=== PATIENT | male | born 1995 | race American Indian/Alaskan Native ===

== ENCOUNTER 2017-02-26 17:42 | Emergency (ER) | payer MEDICARE ==
--- NOTE | 2017-02-26 22:09 | Emergency Department Report ---
ED General Adult HPI - General Chief complaint: Allergic Reaction Stated complaint: FACIAL SWELLING Time Seen by Provider: 02/26/17 21:21 Source: patient Mode of arrival: Ambulatory Limitations: No Limitations - History of Present Illness Initial comments: In comes into the ER today with complaints of bilateral facial pain and swelling for the past 2 days. Patient denies any injury. Patient states that initially he went to [facility] and states that they did nothing for him. Patient states that they gave him a prescription of something and he went to his doctor where apparently the nurse told him not to take the medicine because she wanted his doctor to see him this coming Wednesday and see what his symptoms were. Patient has not taken anything for his condition but has been to 2 other facilities for the same complaint. Patient came in today because he states the pain and swelling seems to keep getting worse. Patient denies any rash, obvious fevers, chills, body aches. Patient denies any throat pain or swelling. Patient does state that he believes he has had all his vaccinations growing up. Severity scale (0 -10): 0 - Related Data Previous Rx's Medication Instructions Recorded Last Taken Type Ranitidine HCl [Zantac 75 MG TAB] 75 mg PO BID #20 tablet 07/20/15 Unknown Rx Ibuprofen [Motrin] 600 mg PO Q8H PRN #15 tablet 05/25/16 Unknown Rx Naproxen [Naprosyn TAB] 500 mg PO BID #20 tablet 02/27/17 Unknown Rx traMADol [Ultram 50 MG tab] 50 mg PO Q4HR PRN #30 tablet 02/27/17 Unknown Rx Allergies Allergy/AdvReac Type Severity Reaction Status Date / Time lemon Allergy Unknown Verified 05/22/16 16:03 [place] Allergy Unknown Verified 05/22/16 16:03 Penicillins Allergy Rash Verified 07/20/15 16:52 pineapple Allergy Itching Verified 05/22/16 16:03 ED Review of Systems ROS: Stated complaint: FACIAL SWELLING Other details as noted in HPI Constitutional: denies: chills, fever Eyes: denies: eye pain, eye discharge, vision change ENT: other (bilateral jaw pain). denies: ear pain, throat pain, dental pain, hearing loss Respiratory: denies: cough, shortness of breath, SOB with exertion, wheezing Cardiovascular: denies: chest pain, palpitations Endocrine: no symptoms reported Gastrointestinal: denies: abdominal pain, nausea, vomiting Genitourinary: denies: urgency, dysuria Musculoskeletal: denies: back pain, joint swelling, arthralgia Skin: denies: rash, lesions Neurological: denies: headache, weakness, numbness, paresthesias, confusion Psychiatric: denies: anxiety, depression Hematological/Lymphatic: denies: easy bleeding, easy bruising ED Past Medical Hx - Past Medical History Hx Hypertension: Yes Hx Headaches / Migraines: Yes Hx Psychiatric Treatment: (depression, anxiety, bipolar disorder) Hx Asthma: Yes - Surgical History Additional Surgical History: ear tubes - Social History Smoking Status: Never Smoker Substance Use Type: None - Medications Home Medications: Home Medications Medication Instructions Recorded Confirmed Last Taken Type Ranitidine HCl [Zantac 75 MG TAB] 75 mg PO BID #20 tablet 07/20/15 Unknown Rx Ibuprofen [Motrin] 600 mg PO Q8H PRN #15 tablet 05/25/16 Unknown Rx Naproxen [Naprosyn TAB] 500 mg PO BID #20 tablet 02/27/17 Unknown Rx traMADol [Ultram 50 MG tab] 50 mg PO Q4HR PRN #30 tablet 02/27/17 Unknown Rx ED Physical Exam - General Limitations: No Limitations General appearance: alert, in no apparent distress - Head Head exam: Present: atraumatic, normocephalic, other (bilateral swelling and tenderness noted to the mandibular angle and posteriorly). Absent: normal inspection - Eye Eye exam: Present: normal appearance, PERRL, EOMI. Absent: conjunctival injection, periorbital swelling, periorbital tenderness Pupils: Present: normal accommodation - ENT ENT exam: Present: normal orophraynx, mucous membranes moist, normal external ear exam - Neck Neck exam: Present: normal inspection, tenderness (bilateral anterior upper neck tenderness and swelling in mandibular angle region.), full ROM. Absent: thyromegaly - Respiratory Respiratory exam: Present: normal lung sounds bilaterally. Absent: respiratory distress - Cardiovascular Cardiovascular Exam: Present: regular rate, normal rhythm, normal heart sounds. Absent: systolic murmur, diastolic murmur, rubs, gallop - GI/Abdominal GI/Abdominal exam: Present: soft, normal bowel sounds. Absent: distended, tenderness - Rectal Rectal exam: Present: deferred - Extremities Exam Extremities exam: Present: normal inspection - Back Exam Back exam: Present: normal inspection, full ROM. Absent: tenderness - Neurological Exam Neurological exam: Present: alert, oriented X3, CN II-XII intact, normal gait, reflexes normal. Absent: motor sensory deficit - Psychiatric Psychiatric exam: Present: normal affect, normal mood - Skin Skin exam: Present: warm, dry, intact, normal color. Absent: rash ED Course Vital Signs 02/26/17 02/26/17 18:32 21:35 Temperature 98.1 F 97.7 F Pulse Rate 61 55 L Respiratory 16 Rate Blood Pressure 128/75 Blood Pressure 131/78 [Left] O2 Sat by Pulse 98 100 Oximetry ED Medical Decision Making - Lab Data Result diagrams: 02/26/17 22:30 02/26/17 22:30 Lab Results 02/26/17 02/26/17 Range/Units 22:30 22:30 WBC 4.5 (4.5-11.0) K/mm3 RBC 4.55 (3.65-5.03) M/mm3 Hgb 14.2 (11.8-15.2) gm/dl Hct 42.2 (35.5-45.6) % MCV 93 (84-94) fl MCH 31 (28-32) pg MCHC 34 (32-34) % RDW 13.8 (13.2-15.2) % Plt Count 154 (140-440) K/mm3 Add Manual Diff Complete Total Counted 100 Seg Neutrophils % [employer] Seg Neuts % (Manual) 31.0 L (40.0-70.0) % Band Neutrophils % 0 % Lymphocytes % (Manual) 43.0 H (13.4-35.0) % Reactive Lymphs % (Man) 0 % Monocytes % (Manual) 17.0 H (0.0-7.3) % Eosinophils % (Manual) 6.0 H (0.0-4.3) % Basophils % (Manual) 3.0 H (0.0-1.8) % Metamyelocytes % 0 % Myelocytes % 0 % Promyelocytes % 0 % Blast Cells % 0 % Nucleated RBC % Not Reportable Seg Neutrophils # Man 1.4 L (1.8-7.7) K/mm3 Band Neutrophils # 0.0 K/mm3 Lymphocytes # (Manual) 1.9 (1.2-5.4) K/mm3 Abs React Lymphs (Man) 0.0 K/mm3 Monocytes # (Manual) 0.8 (0.0-0.8) K/mm3 Eosinophils # (Manual) 0.3 (0.0-0.4) K/mm3 Basophils # (Manual) 0.1 (0.0-0.1) K/mm3 Metamyelocytes # 0.0 K/mm3 Myelocytes # 0.0 K/mm3 Promyelocytes # 0.0 K/mm3 Blast Cells # 0.0 K/mm3 WBC Morphology Not Reportable Hypersegmented Neuts Not Reportable Hyposegmented Neuts Not Reportable Hypogranular Neuts Not Reportable Smudge Cells Not Reportable Toxic Granulation Not Reportable Toxic Vacuolation Not Reportable Dohle Bodies Not Reportable Pelger-Huet Anomaly Not Reportable Brian Rods Not Reportable Platelet Estimate Appears normal Clumped Platelets Not Reportable Plt Clumps, EDTA Not Reportable Large Platelets Not Reportable Giant Platelets Not Reportable Platelet Satelliting Not Reportable Plt Morphology Comment Not Reportable RBC Morphology Not Reportable Dimorphic RBCs Not Reportable Polychromasia Not Reportable Hypochromasia Not Reportable Poikilocytosis Not Reportable Anisocytosis Rare Microcytosis Not Reportable Macrocytosis Not Reportable Spherocytes Not Reportable Pappenheimer Bodies Not Reportable Sickle Cells Not Reportable Target Cells Not Reportable Tear Drop Cells Not Reportable Ovalocytes Not Reportable Helmet Cells Not Reportable [place] Bodies Not Reportable [place] Rings Not Reportable Mcdonald Cells Not Reportable Bite Cells Not Reportable Crenated Cell Not Reportable Elliptocytes Not Reportable Acanthocytes (Spur) Not Reportable Rouleaux Not Reportable Hemoglobin C Crystals Not Reportable Schistocytes Not Reportable Malaria parasites Not Reportable Geoff Bodies Not Reportable Hem Pathologist Commnt No Sodium 139 (137-145) mmol/L Potassium 3.7 (3.6-5.0) mmol/L Chloride 98.8 (98-107) mmol/L Carbon Dioxide 25 (22-30) mmol/L Anion Gap 19 mmol/L BUN 11 (9-20) mg/dL Creatinine 0.7 L (0.8-1.5) mg/dL Estimated GFR > 60 ml/min BUN/Creatinine Ratio 15.71 % Glucose 80 (75-100) mg/dL Calcium 9.2 (8.4-10.2) mg/dL Total Bilirubin 0.60 (0.1-1.2) mg/dL AST 16 (5-40) units/L ALT 22 (7-56) units/L Alkaline Phosphatase 133 H (35-129) units/L Total Protein 7.5 (6.3-8.2) g/dL Albumin 4.4 (3.9-5) g/dL Albumin/Globulin Ratio 1.4 % - Radiology Data Radiology results: report reviewed CT scan of the soft tissue of neck with contrast: There is slight soft tissue swelling identified along the mandibular angle region bilaterally in this patient. No formed fluid collections or abscesses seen. The parotid glands appear normal. The osseous structures are intact. - Medical Decision Making Lab results as well as CT imaging results reviewed and discussed with patient and family in room. I had Dr. Gomez examine patient in room. Patient does not have any signs of Dewey's angina as he has no airway compromise, no sublingual swelling, is tolerating secretions without difficulties. Swelling seems more externally superficial in nature. There is no surface erythematous nor internal signs of dental abscesses, no dental pain. Patient is nontoxic and hemodynamically intact. I believe patient to be having symptoms of the mumps. I have informed patient that this is a contagious viral illness and that he needs to limit any external exposure for the next 5 days. I will start patient on a short course of anti-inflammatories as well as pain medications for symptomatic relief. Patient is to keep his appointment with his doctor on Wednesday. Patient and family are in agreement with treatment plan patient is stable for discharge. Critical care attestation.: If time is entered above; I have spent that time in minutes in the direct care of this critically ill patient, excluding procedure time. ED Disposition Clinical Impression: Facial swelling Mumps Qualifiers: Mumps complication type: without complication Qualified Code(s): B26.9 - Mumps without complication Disposition: TO HOME OR SELFCARE Is pt being admited?: No Does the pt Need Aspirin: No Condition: Good Instructions: Mumps (ED) Prescriptions: Naproxen [Naprosyn TAB] 500 mg PO BID #20 tablet traMADol [Ultram 50 MG tab] 50 mg PO Q4HR PRN #30 tablet PRN Reason: Pain Referrals: PRIMARY CARE,MD [Primary Care Provider] - 3-5 Days Time of Disposition: 01:41
[2017-02-26 23:16] LABS: Hematocrit 42.2 % (35.5-45.6); Hemoglobin 14.2 gm/dl (11.8-15.2); Mean Corpuscular HGB Conc 34 % (32-34); Mean Corpuscular Hemoglobin 31 pg (28-32); Mean Corpuscular Volume 93 fl (84-94); Platelet Count 154 K/mm3 (140-440); Red Blood Count 4.55 M/mm3 (3.65-5.03); Red Cell Distribution Width 13.8 % (13.2-15.2); White Blood Count 4.5 K/mm3 (4.5-11.0)
[2017-02-26 23:35] LABS: Alanine Aminotransferase 22 units/L (7-56); Albumin 4.4 g/dL (3.9-5); Albumin/Globulin Ratio 1.4 %; Alkaline Phosphatase 133 units/L (35-129); Anion Gap 19 mmol/L; BUN/Creatinine Ratio 15.71; Blood Urea Nitrogen 11 mg/dL (9-20); Calcium 9.2 mg/dL (8.4-10.2); Carbon Dioxide 25 mmol/L (22-30); Chloride 98.8 mmol/L (98-107); Glucose 80 mg/dL (75-100); Potassium 3.7 mmol/L (3.6-5.0); Sodium 139 mmol/L (137-145); Total Protein 7.5 g/dL (6.3-8.2)
[2017-02-27] MEDS ORDERED: NACL ONE (00:01)
--- NOTE | 2017-02-27 01:16 | Cat Scan Report ---
FINAL REPORT PROCEDURE: CT NECK W CON TECHNIQUE: Computerized axial tomography of the soft tissue neck was performed following the IV injection of iodinated nonionic contrast. HISTORY: Bilateral mandibular angle swelling COMPARISON: No prior studies are available for comparison. FINDINGS: Skull and scalp: The osseous structures appear intact. There is slight soft tissue swelling along the mandibular angles bilaterally. This is nonspecific. No formed fluid collection or abscess is seen.. Paranasal sinuses: Normal. Nasopharynx: Normal . Oral cavity: Normal . Epiglottis/vallecula: Normal . Larynx/pyriform sinuses: Normal . Thyroid gland: Normal . Lymph nodes: None enlarged . Salivary glands: Normal . Upper thorax: Normal . IMPRESSION: There is slight soft tissue swelling identified along the mandibular angle region bilaterally in this patient. No formed fluid collection or abscess is seen. The swelling is nonspecific. The parotid glands appear normal. The osseous structures are intact.
[2017-02-27 01:34] LABS: Blastocytes % (Manual) 0 %
[2017-02-27 01:35] LABS: Anisocytosis RARE; Diff Status Complete
[2017-02-27 01:56] VITALS: BP 128/80
== END 2017-02-27 01:56 | disposition home or self-care (01) ==
LOC: ED 17:42
DX: B26.9 Mumps without complication (principal); R20.0 Anesthesia of skin; I10 Essential (primary) hypertension; G43.909 Migraine, unspecified, not intractable, without status migrainosus; F31.9 Bipolar disorder, unspecified; J45.909 Unspecified asthma, uncomplicated
CPT/HCPCS: 36415; 70491; 80053; 85007; 85025; 86735; 99284; Q9967

== ENCOUNTER 2017-11-13 13:41 | Emergency (ER) | payer MEDICARE ==
[2017-11-13 15:09] LABS: Basophils # (Auto) 0.1 K/mm3 (0.0-0.1); Basophils % (Auto) 1.3 % (0.0-1.8); Eosinophils # (Auto) 0.2 K/mm3 (0.0-0.4); Eosinophils % (Auto) 4.1 % (0.0-4.3); Hematocrit 41.3 % (35.5-45.6); Hemoglobin 13.5 gm/dl (11.8-15.2); Lymphocytes # (Auto) 2.3 K/mm3 (1.2-5.4); Lymphocytes % (Auto) 41.5 % (13.4-35.0); Mean Corpuscular HGB Conc 33 % (32-34); Mean Corpuscular Hemoglobin 31 pg (28-32); Mean Corpuscular Volume 93 fl (84-94); Monocytes # (Auto) 0.5 K/mm3 (0.0-0.8); Monocytes % (Auto) 8.1 % (0.0-7.3); Platelet Count 185 K/mm3 (140-440); Red Blood Count 4.43 M/mm3 (3.65-5.03); Red Cell Distribution Width 14.4 % (13.2-15.2)
[2017-11-13 15:24] LABS: Alanine Aminotransferase 129 units/L (7-56); Albumin 4.3 g/dL (3.9-5); BUN/Creatinine Ratio 10; Blood Urea Nitrogen 10 mg/dL (9-20); Calcium 9.4 mg/dL (8.4-10.2); Hemolysis Index 16
[2017-11-13] MEDS ORDERED: MOTRIN PO ONE (16:40)
[2017-11-13] MEDS ORDERED: PEPCID PO ONE (16:40)
--- NOTE | 2017-11-13 17:25 | XRay Report ---
FINAL REPORT EXAM: XR ABDOMEN 2V HISTORY: diffuse abd pain TECHNIQUE: Two views of the abdomen were performed Comparison: None FINDINGS: There large amount of stool in the right colon and transverse colon. The left colon is air-filled and distended. There is moderate stool ball in the rectum. Upright film is somewhat clipped in the region of the assessed area for free air. Questionable Rigler's sign in the flanks. Alternatively this may represent the properitoneal fat stripe in a thin patient. The inferior tip right lobe liver appears to be unusually well seen. IMPRESSION: Patient appears to be significantly constipated primarily on the right abdomen with air-filled distended left colon. There is moderate amount of stool in the rectum. There is a questionable riglers sign and unusually well seen inferior tip right lobe liver. Limited assessment for free air as the annotation is obscuring the region of the right hemidiaphragm which is also partially clipped. At a minimum, would recommend obtaining a repeat film. Alternatively, recommend CT abdomen and pelvis. This is a critical level 2 result. Findings are called on 11/13/2017 at 1719 hours.
[2017-11-13 18:02] VITALS: BP 140/89
--- NOTE | 2017-11-13 19:34 | Cat Scan Report ---
FINAL REPORT EXAM: CT ABDOMEN PELVIS W CON TECHNIQUE: CT evaluation performed of the abdomen and pelvis following IV and oral contrast administration. Coronal and sagittal imaging also provided for interpretation. PRIORS: Radiographs dated 11/13/2017. FINDINGS: Lower thorax: The lung bases are clear. The visualized portions of the heart are normal. Liver: No focal lesions identified of the liver. No intrahepatic biliary ductal dilation. Gallbladder/ biliary system: No cholelithiasis. No extrahepatic biliary ductal dilation. Spleen: No splenic lesions are seen. Pancreas: No pancreatic lesions are seen. No pancreatic duct dilation. Kidneys: No kidney lesions identified. No hydronephrosis. No ureteral or renal calcifications. Adrenal glands: No adrenal masses. Vasculature: The abdominal and pelvic vasculature demonstrates a normal noncontrasted appearance. Lymph nodes: No enlarged lymph nodes are seen in the abdomen or pelvis. Bowel, mesentery, peritoneum: No bowel obstruction. Moderate to large volume formed colonic stool. Evaluated portions of the appendix appears normal, no adjacent inflammatory change. Urinary bladder: No calculi or wall thickening. Pelvis: Normal anatomy is noted. No masses. Abdominal wall: No abdominal wall hernia or subcutaneous findings. Bones: No acute osseous abnormality. IMPRESSION: No CT evidence of acute abdominopelvic process. Moderate to large volume formed colonic stool. No evidence of GI tract inflammatory change or perforation. HISTORY: Possible regular sign on KUB
--- NOTE | 2017-11-13 20:18 | Emergency Department Report ---
ED Abdominal Pain HPI - General Chief Complaint: Abdominal Pain Stated Complaint: ABDOMINAL PAIN/CD4 COUNT Time Seen by Provider: 11/13/17 16:31 Source: patient Mode of arrival: Ambulatory Limitations: No Limitations - History of Present Illness Initial Comments: Patient is a 22-year-old [place] male who has been complaining of some abdominal discomfort for the past 2-3 days. Patient states that he feels distended in his abdomen. Patient says on the bilateral sides of his abdomen where his hernia and states the pain is 8 out of 10 and crampy in nature. Patient denies any nausea vomiting diarrhea or fever at this time. Patient states that similar was secondary to constipation. Severity scale (0 -10): 8 - Related Data Previous Rx's Medication Instructions Recorded Last Taken Type Ranitidine HCl [Zantac 75 MG TAB] 75 mg PO BID #20 tablet 07/20/15 Unknown Rx Ibuprofen [Motrin] 600 mg PO Q8H PRN #15 tablet 05/25/16 Unknown Rx Naproxen [Naprosyn TAB] 500 mg PO BID #20 tablet 02/27/17 Unknown Rx traMADol [Ultram 50 MG tab] 50 mg PO Q4HR PRN #30 tablet 02/27/17 Unknown Rx Dicyclomine [Bentyl] 40 mg PO QID #20 tablet 11/13/17 Unknown Rx Docusate Sodium [Colace] 100 mg PO BID #60 capsule 11/13/17 Unknown Rx Allergies Allergy/AdvReac Type Severity Reaction Status Date / Time lemon Allergy Unknown Verified 05/22/16 16:03 [place] Allergy Unknown Verified 05/22/16 16:03 Penicillins Allergy Rash Verified 07/20/15 16:52 pineapple Allergy Itching Verified 05/22/16 16:03 ED Review of Systems ROS: Stated complaint: ABDOMINAL PAIN/CD4 COUNT Other details as noted in HPI Comment: All other systems reviewed and negative ED Past Medical Hx - Past Medical History Hx Hypertension: Yes Hx Headaches / Migraines: Yes Hx Psychiatric Treatment: (depression, anxiety, bipolar disorder) Hx Asthma: Yes - Surgical History Additional Surgical History: ear tubes - Social History Smoking Status: Current Some Day Smoker Substance Use Type: None - Medications Home Medications: Home Medications Medication Instructions Recorded Confirmed Last Taken Type Ranitidine HCl [Zantac 75 MG TAB] 75 mg PO BID #20 tablet 07/20/15 Unknown Rx Ibuprofen [Motrin] 600 mg PO Q8H PRN #15 tablet 05/25/16 Unknown Rx Naproxen [Naprosyn TAB] 500 mg PO BID #20 tablet 02/27/17 Unknown Rx traMADol [Ultram 50 MG tab] 50 mg PO Q4HR PRN #30 tablet 02/27/17 Unknown Rx Dicyclomine [Bentyl] 40 mg PO QID #20 tablet 11/13/17 Unknown Rx Docusate Sodium [Colace] 100 mg PO BID #60 capsule 11/13/17 Unknown Rx ED Physical Exam - General Limitations: No Limitations General appearance: alert, in no apparent distress - Head Head exam: Present: atraumatic, normocephalic - Eye Eye exam: Present: normal appearance - ENT ENT exam: Present: mucous membranes moist - Neck Neck exam: Present: normal inspection - Respiratory Respiratory exam: Present: normal lung sounds bilaterally. Absent: respiratory distress, wheezes, rales, rhonchi - Cardiovascular Cardiovascular Exam: Present: regular rate, normal rhythm. Absent: systolic murmur, diastolic murmur, rubs, gallop - GI/Abdominal GI/Abdominal exam: Present: soft, tenderness (tenderness on the bilateral abdominal sides. There is no midline tenderness at the epigastrium umbilicus and suprapubic regions. There is no CVA tenderness or true flank pain.), normal bowel sounds. Absent: distended, guarding, rebound - Rectal Rectal exam: Present: deferred - Extremities Exam Extremities exam: Present: normal inspection - Back Exam Back exam: Present: normal inspection - Neurological Exam Neurological exam: Present: alert, oriented X3 - Psychiatric Psychiatric exam: Present: normal affect, normal mood - Skin Skin exam: Present: warm, dry, intact, normal color. Absent: rash ED Course Vital Signs 11/13/17 11/13/17 13:56 15:59 Temperature 98.7 F Pulse Rate 103 H 79 Respiratory 17 18 Rate Blood Pressure 140/77 Blood Pressure 140/89 [Left] O2 Sat by Pulse 97 99 Oximetry ED Medical Decision Making - Lab Data Result diagrams: 11/13/17 14:55 11/13/17 14:55 - Radiology Data Radiology results: report reviewed X-ray of the abdomen and pelvis shows large amounts of fecal retention in the right abdomen as well as the rectum and large gaseous distention of the colon on the left. There is questionable Rigler sign and CT abdomen and pelvis was suggested for follow-up. CT abdomen and pelvis with IV contrast shows constipation there is no evidence of any perforation present - Medical Decision Making Patient is a 22-year-old -[place] male who is presenting with abdominal discomfort. Abdominal pain is secondary to constipation and gaseous distention of the colon who be discharged home. Critical care attestation.: If time is entered above; I have spent that time in minutes in the direct care of this critically ill patient, excluding procedure time. ED Disposition Clinical Impression: Gas pain, Constipation Disposition: DC-01 TO HOME OR SELFCARE Is pt being admited?: No Does the pt Need Aspirin: No Condition: Stable Instructions: Constipation (ED), High Fiber Diet (ED) Prescriptions: Dicyclomine [Bentyl] 40 mg PO QID #20 tablet Docusate Sodium [Colace] 100 mg PO BID #60 capsule Referrals: AHSAN CORONA MD [Staff Physician] - as needed
== END 2017-11-13 20:30 | disposition home or self-care (01) ==
LOC: ED 13:41
DX: K59.00 Constipation, unspecified (principal); R14.1 Gas pain; I10 Essential (primary) hypertension; G43.909 Migraine, unspecified, not intractable, without status migrainosus; J45.909 Unspecified asthma, uncomplicated; F17.200 Nicotine dependence, unspecified, uncomplicated; F31.9 Bipolar disorder, unspecified; F41.9 Anxiety disorder, unspecified; Z88.0 Allergy status to penicillin; Z91.018 Allergy to other foods
CPT/HCPCS: 36415; 74019; 74177; 80053; 85025; 99284; Q9967

== ENCOUNTER 2017-11-30 15:23 | Emergency (ER) | payer MEDICARE ==
[2017-11-30 15:40] VITALS: BP 132/86
== END 2017-11-30 21:15 | disposition left against medical advice (07) ==
LOC: ED 15:23
DX: G43.909 Migraine, unspecified, not intractable, without status migrainosus (principal); R06.02 Shortness of breath; Z53.21 Procedure and treatment not carried out due to patient leaving prior to being seen by health care provider

== ENCOUNTER 2018-03-22 21:01 | Emergency (ER) | payer MEDICARE ==
[2018-03-22 21:57] LABS: Basophils # (Auto) 0.1 K/mm3 (0.0-0.1); Basophils % (Auto) 0.8 % (0.0-1.8); Eosinophils # (Auto) 0.1 K/mm3 (0.0-0.4); Eosinophils % (Auto) 1.4 % (0.0-4.3); Hematocrit 41.1 % (35.5-45.6); Hemoglobin 13.9 gm/dl (11.8-15.2); Lymphocytes # (Auto) 1.7 K/mm3 (1.2-5.4); Lymphocytes % (Auto) 25.1 % (13.4-35.0); Mean Corpuscular HGB Conc 34 % (32-34); Mean Corpuscular Hemoglobin 32 pg (28-32); Mean Corpuscular Volume 94 fl (84-94); Monocytes # (Auto) 0.6 K/mm3 (0.0-0.8); Monocytes % (Auto) 8.9 % (0.0-7.3); Platelet Count 212 K/mm3 (140-440); Red Blood Count 4.39 M/mm3 (3.65-5.03); Red Cell Distribution Width 14.5 % (13.2-15.2)
[2018-03-22 22:08] LABS: BUN/Creatinine Ratio 12; Blood Urea Nitrogen 11 mg/dL (9-20); Calcium 10.6 mg/dL (8.4-10.2); Hemolysis Index 9
[2018-03-22 22:35] LABS: Bilirubin,Urine NEG (Negative); Blood,Urine NEG (Negative); Color,Urine Yellow (Yellow); Mucus,Urine FEW /HPF; Urobilinogen,Urine < 2.0 mg/dL (<2.0)
[2018-03-22 22:41] LABS: Amphetamine Screen,Urine PRESUMPTIVE NEGATIVE; Benzodiazepines Screen,Urine PRESUMPTIVE NEGATIVE; Cannabinoid Screen,Urine PRESUMPTIVE NEGATIVE; Cocaine Screen,Urine PRESUMPTIVE NEGATIVE; Methadone Screen,Urine PRESUMPTIVE NEGATIVE; Opiate Screen,Urine PRESUMPTIVE NEGATIVE
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
[2018-03-23 10:30] VITALS: BP 109/64
--- NOTE | 2018-03-23 12:35 | Consultation ---
History of Present Illness - Reason for Consult Reason for consult: recent expression of SI with plan - History of Present Psychiatric Illness This is a 22-year-old male with a formal past psychiatric history of bipolar disorder presents secondary to recent expression of suicidal thoughts with plan. Patient reports he brought himself to the hospital secondary to recent expression or expansive suicidal thoughts. Exacerbating event is noted as patient having a conflict with his sister and patient being thrown out of her home. At the current time, patient follows up outpatient with [facility] as well as the [facility]. Patient is HIV-positive and last CD4 count was 573 per self-report. Patient reports he is apparent to his medications for HIV. Current symptoms consist of persistent suicidal thoughts with plan, low side moods, some concern and anxiety about him now being homeless. Patient denies auditory visual hallucinations. Patient does not currently report being in a manic episode. Current medications: Seroquel Cymbalta GENVOYA Past psychiatric history: Patient peers he also has a [facility] as well as [facility]. Outpatient currently [facility] Past medical history: HIV-positive, asthma and history of migraines. Allergic to lemon line penicillins and pineapple Social history: Trauma abuse history unremarkable per review of the medical record. Patient denies using illicit substances and there is no acute reason to be concerned for detox. Patient reports that he is now homeless and was recently living with his sister. Patient reports that his family wants nothing to do with him secondary to his ongoing mood lability. On mental status examinati, this is a 22-year-old tall well-developed well- nourished male with limited eye contact but wearing spectacles. Patient was recumbent in bed wearing hospital gown. Patient was guarded and withdrawn. He appeared fairly apprehensive and irritable. Speech was clear coherent but logical goal directed and with no loose associations. He continues to report auditory hallucinations as well as suicidal thoughts with plan and intent on my examination. There is no other delusions paranoia or grandiosity noted. Oriented to person place time and situation. Concentration and attention appeared intact. Memory intact. Insight judgment limited and impulsive. ADLs and dependent. Admitting diagnosis: Bipolar disorder, most recent episode depressed Plan: Initiate home dose of Seroquel and titrate till it's clinically effective Hold Cymbalta Continue on 1013 and find appropriate inpatient psychiatric placement for this patient. Continue current suicide precautions that are maintained in the ER. Reassess daily to see if patient continues to have auditory hallucinations and comorbid suicidal thoughts with plan. If the patient's auditory hallucinations and suicidal thoughts began to yoli, create a stable outpatient plan for the patient to follow-up with his providers at [facility]. If patient's symptoms are persistent, continue to pursue inpatient psychiatric treatment. Medications and Allergies Allergies Allergy/AdvReac Type Severity Reaction Status Date / Time lemon Allergy Unknown Verified 01/26/18 12:24 paiute-shoshone Allergy Unknown Verified 01/26/18 12:24 Penicillins Allergy Rash Verified 01/26/18 12:24 pineapple Allergy Itching Verified 01/26/18 12:24 Home Medications Medication Instructions Recorded Confirmed Last Taken Type Unobtainable 03/22/18 03/22/18 Unknown History Mental Status Exam - Vital signs Last Vital Signs Temp 98.5 F 03/23/18 10:30 Pulse 82 03/23/18 10:00 Resp 18 03/23/18 12:16 BP 109/64 03/23/18 10:00 Pulse Ox 99 03/23/18 12:16 Results Result Diagrams: 03/22/18 21:43 03/22/18 21:43 Abnormal lab results 03/22/18 03/22/18 03/22/18 Range/Units 21:43 21:43 21:43 Clay % (Auto) (0.0-7.3) % Calcium 10.6 H (8.4-10.2) mg/dL Salicylates < 0.3 L (2.8-20.0) mg/dL Acetaminophen < 5.0 L (10.0-30.0) ug/mL 03/22/18 Range/Units 21:43 Clay % (Auto) 8.9 H (0.0-7.3) % Calcium (8.4-10.2) mg/dL Salicylates (2.8-20.0) mg/dL Acetaminophen (10.0-30.0) ug/mL All other labs normal.
== END 2018-03-23 18:58 | disposition home or self-care (01) ==
LOC: EEVIPCON 21:01 → ED 21:01
DX: F39 Unspecified mood [affective] disorder (principal); F31.9 Bipolar disorder, unspecified; F41.9 Anxiety disorder, unspecified; F32.9 Major depressive disorder, single episode, unspecified; I10 Essential (primary) hypertension; J45.909 Unspecified asthma, uncomplicated; G43.909 Migraine, unspecified, not intractable, without status migrainosus; Z87.891 Personal history of nicotine dependence; Z88.0 Allergy status to penicillin; Z91.018 Allergy to other foods
CPT/HCPCS: 36415; 80048; 80307; 81001; 85025; 99285; G0480; 80320

== ENCOUNTER 2018-04-02 04:17 | Emergency (ER) | payer MEDICARE ==
[2018-04-02] MEDS ORDERED: DUONEB *Not for PRN Use IH ONE ×2 (04:52→05:06)
[2018-04-02 05:05] VITALS: BP 124/80
[2018-04-02] MEDS ORDERED: DELTASONE PO ONE (07:27)
--- NOTE | 2018-04-02 07:27 | Emergency Department Report ---
ED Asthma HPI - General Chief Complaint: Adult Asthma Stated Complaint: SOB Time Seen by Provider: 04/02/18 07:25 Source: patient Mode of arrival: Ambulatory Limitations: No Limitations - History of Present Illness Initial Comments: This is a 22-year-old male here from [place] reportedly has asthma symptoms since yesterday. Report mildly thin. Denies any nausea vomiting. Denies any difficulty breathing or chest pain. Denies any fever or chills. Ports dry cough. He said he ran out of his albuterol nebulizer pain is 0-10. Patient has a history of headache, asthma, hypertension and HIV. He has I a history of depression, anxiety bipolar disorder and schizophrenia. MD Complaint: "asthma attack", wheezing Onset/Timin -: days(s) Asthma History: childhood onset, history of prior ED visit Context: ran out of meds Associated Symptoms: dry cough Treatments Prior to Arrival: inhaled bronchodilator - Related Data Current Asthma Therapy: none Previous Rx's Medication Instructions Recorded Last Taken Type ALBUTEROL Inhaler [ProAir HFA 2 puff IH Q6H PRN #1 inhalation 04/02/18 Unknown Rx Inhaler] methylPREDNISolone [Medrol Dose 4 mg PO DAILY #1 tab.ds.pk 04/02/18 Unknown Rx Aaron] Allergies Allergy/AdvReac Type Severity Reaction Status Date / Time lemon Allergy Unknown Verified 01/26/18 12:24 barrow Allergy Unknown Verified 01/26/18 12:24 Penicillins Allergy Rash Verified 01/26/18 12:24 pineapple Allergy Itching Verified 01/26/18 12:24 ED Review of Systems ROS: Stated complaint: SOB Other details as noted in HPI Constitutional: denies: chills, fever Eyes: denies: eye pain, eye discharge, vision change ENT: denies: ear pain, throat pain, congestion Respiratory: cough, wheezing. denies: shortness of breath, SOB with exertion, SOB at rest, stridor Cardiovascular: denies: chest pain, palpitations, edema, syncope Gastrointestinal: denies: nausea, vomiting Genitourinary: denies: urgency, dysuria, hematuria Musculoskeletal: denies: back pain, joint swelling, arthralgia, myalgia Skin: denies: rash, lesions Neurological: denies: headache, weakness ED Past Medical Hx - Past Medical History Previous Medical History?: Yes Hx Hypertension: Yes Hx Headaches / Migraines: Yes Hx Psychiatric Treatment: Yes (depression, anxiety, bipolar disorder, schizophrenia) Hx Asthma: Yes Hx HIV: Yes - Surgical History Past Surgical History?: Yes Additional Surgical History: ear tubes - Family History Family history: hypertension - Social History Smoking Status: Never Smoker Substance Use Type: None - Medications Home Medications: Home Medications Medication Instructions Recorded Confirmed Last Taken Type ALBUTEROL Inhaler [ProAir HFA 2 puff IH Q6H PRN #1 inhalation 04/02/18 Unknown Rx Inhaler] methylPREDNISolone [Medrol Dose 4 mg PO DAILY #1 tab.ds.pk 04/02/18 Unknown Rx Aaron] ED Physical Exam - General Limitations: No Limitations General appearance: alert, in no apparent distress - Head Head exam: Present: atraumatic, normocephalic, normal inspection - Eye Eye exam: Present: normal appearance, PERRL, EOMI Pupils: Present: normal accommodation - ENT ENT exam: Present: normal exam, normal orophraynx, mucous membranes moist, TM's normal bilaterally, normal external ear exam - Neck Neck exam: Present: normal inspection, full ROM, other. Absent: tenderness, lymphadenopathy - Respiratory Respiratory exam: Present: normal lung sounds bilaterally. Absent: respiratory distress, chest wall tenderness - Cardiovascular Cardiovascular Exam: Present: regular rate, normal rhythm, normal heart sounds. Absent: systolic murmur, diastolic murmur - GI/Abdominal GI/Abdominal exam: Present: soft, normal bowel sounds. Absent: tenderness - Extremities Exam Extremities exam: Present: normal inspection, full ROM, normal capillary refill , other (ambulates in the difficulties). Absent: tenderness, pedal edema, joint swelling, calf tenderness - Neurological Exam Neurological exam: Present: alert, oriented X3, normal gait - Psychiatric Psychiatric exam: Present: normal affect, normal mood - Skin Skin exam: Present: warm, dry, intact, normal color. Absent: rash ED Course Vital Signs 04/02/18 04:59 Temperature 98 F Pulse Rate 95 H Respiratory 16 Rate Blood Pressure 124/80 O2 Sat by Pulse 99 Oximetry - Reevaluation(s) Reevaluation #1: 04/02/18 07:39 Patient received DuoNeb times one treatment in emergency room which up and reevaluation lung sounds clear. Received Deltasone 60 mg by mouth ED Medical Decision Making - Medical Decision Making This is a 22-year-old male here for mild asthma exacerbation. He is coming from [facility]. She reports that he ran out of his asthma medication which is albuterol. Patient was seen and examined by myself and found to have mild scattered wheezing to upper lung bain with dry cough. He received DuoNeb treatment in emergency room and Deltasone 60 mg by mouth and upon reevaluation lung sounds are clear. I discussed the patient is diagnosis and treatment plan and he voiced understanding. Patient vital signs are stable he is afebrile and nontoxic in appearance. Patient discharged home back to [facility] prescription for albuterol and Medrol Dosepak and to follow up with his primary care physician or infectious disease doctor in 2 days. He voiced understanding. Critical care attestation.: If time is entered above; I have spent that time in minutes in the direct care of this critically ill patient, excluding procedure time. ED Disposition Clinical Impression: H/O human immunodeficiency virus infection Asthma attack Qualifiers: Asthma severity: mild Asthma persistence: intermittent Qualified Code(s): J45.21 - Mild intermittent asthma with (acute) exacerbation Disposition: DC-01 TO HOME OR SELFCARE Is pt being admited?: No Does the pt Need Aspirin: No Condition: Stable Instructions: Asthma (ED) Additional Instructions: Please follow-up with your infectious disease doctor or primary care doctor in 2 days Take Medrol Dosepak as instructed use albuterol as instructed If his symptoms return, return to the emergency room [facility] Referrals: [facility] [Outside] - 3-5 Days PRIMARY CARE, [Primary Care Provider] - 3-5 Days Forms: Work/School Release Form(ED), Accompanied Note
== END 2018-04-02 07:59 | disposition home or self-care (01) ==
LOC: ED 04:17
DX: J45.909 Unspecified asthma, uncomplicated (principal); I10 Essential (primary) hypertension; G43.909 Migraine, unspecified, not intractable, without status migrainosus; F31.9 Bipolar disorder, unspecified; F20.9 Schizophrenia, unspecified; Z88.0 Allergy status to penicillin; Z91.018 Allergy to other foods
CPT/HCPCS: 99282; J7512